=== PATIENT | male | born 1965 | race African-American/Black ===

== ENCOUNTER 2019-08-30 17:05 | Emergency (ER) | payer SELFPAY ==
[2019-08-30] MEDS ORDERED: Morphine 4 MG/ML VIAL ONE (17:30)
[2019-08-30] MEDS ORDERED: Ketorolac Tromethamine 30 MG/ML VIAL ONE (17:31)
[2019-08-30] MEDS ORDERED: Morphine 2 MG/ML SYRINGE ONE (17:31)
--- NOTE | 2019-08-30 17:44 | RAD ---
XR Forearm Lt 2 View STANDARD INDICATION: Fall with left forearm deformity FINDINGS: Bones: Heavily comminuted, intra-articular, dorsally displaced distal radius fracture. The distal fra cture fragment is displaced dorsally one half shaft width. There is also a displaced ulnar styloid process fracture. Radiocapitellar alignment appears within normal limits. Joints: As above Soft tissues: Soft tissue swelling surrounding the fracture site of the left wrist. IMPRESSION: Comminuted displaced distal both bone intra-articular wrist fracture.
[2019-08-30] MEDS ORDERED: Lidocaine 1% w/Epinephrine 1:100K 20 ML VIAL ONE (18:21)
[2019-08-30] MEDS ORDERED: Midazolam HCl 2 mg/2 ml Vial ONE ×2 (18:26→20:07)
[2019-08-30] MEDS ORDERED: Fentanyl 100 MCG/2 ML VIAL ONE (18:41)
--- NOTE | 2019-08-30 20:49 | RAD ---
XR Wrist Lt 2 View: 08/30/2019 8:32 PM CLINICAL INDICATION: Post reduction COMPARISON: August 30, 2019. FINDINGS: Bones: There is been interval placement of an overlying fiberglass splint. Displaced comminuted intr a-articular distal radius and ulnar styloid process fractures are unchanged in alignment Joints: As above. Soft Tissue: Persistent soft tissue swelling surrounding the fracture site. IMPRESSION: Interval splinting otherwise stable exam..
== END 2019-08-30 21:24 | disposition home or self-care (01) ==
LOC: ERS 17:05
DX: S52.572A Other intraarticular fracture of lower end of left radius, initial encounter for closed fracture (principal); I10 Essential (primary) hypertension; F17.220 Nicotine dependence, chewing tobacco, uncomplicated; W01.0XXA Fall on same level from slipping, tripping and stumbling without subsequent striking against object, initial encounter
CPT/HCPCS: 25605; 96361; 96374; 96375; 96376; J1885; J2250; J2270; J3010